=== PATIENT | female | born 1940 | race Caucasian/White ===

== ENCOUNTER 2021-04-26 13:31 | Observation (INO) ==
[2021-04-26 15:00] LABS: Basophils % 0.7 %; Eosinophils # 0.1 K/mcL (0.0-0.6); Eosinophils % 2.6 %; Hematocrit 41.8 % (35.3-44.9); Hemoglobin 13.3 g/dL (11.5-15.4); Immature Granulocytes % 0.2 % (0-4); Lymphocytes # 1.2 K/mcL (0.6-4.6); Lymphocytes % 21.4 %; Mean Corpuscular HGB Conc 31.8 g/dL (31.6-35.5); Mean Corpuscular Volume 91.3 fL (83.0-100.0); Monocytes # 0.5 K/mcL (0.0-1.3); Monocytes % 9.1 %; Neutrophils # 3.6 K/mcL (1.6-8.9); Platelet Count 267 K/mcL (140-400); Red Blood Count 4.58 M/mcL (3.82-4.97); Red Cell Distribution Width 12.8 % (11.5-14.5); White Blood Count 5.4 K/mcL (4.3-11.1)
[2021-04-26 15:21] LABS: Alanine Aminotransferase 10 Units/L (7-52); Albumin/Globulin Ratio 1.4 (1.1-2.2); Alkaline Phosphatase 60 Units/L (34-104); Aspartate Amino Transferase 14 Units/L (13-39); BUN/Creatinine Ratio 20 (6-26); Bilirubin,Total 0.3 mg/dL (0.3-1.0); Blood Urea Nitrogen 18 mg/dL (8-23); Calcium 9.1 mg/dL (8.6-10.3); Carbon Dioxide 28 mEq/L (23-29); Chloride 99 mEq/L (98-107); Globulin 2.9 g/dL (2.4-3.5); Glucose 101 mg/dL (70-105); Osmolality,Calculated 280 (280-300); Potassium 4.1 mEq/L (3.5-5.1); Sodium 134 mEq/L (136-145); Total Protein 6.9 g/dL (6.4-8.9); eGFR For African Americans > 60 (> 60); eGFR For Non-African Americans > 60 (> 60)
[2021-04-26] MEDS ORDERED: Naloxone 0.4 MG/ML INJ IVP PRN (15:46)
[2021-04-26] MEDS: *HR* Heparin 5,000 UNIT/ML VIAL SQ SCH (17:46)
[2021-04-26] MEDS: clonazePAM 0.5 MG TABLET PO SCH (21:18)
[2021-04-27] MEDS: *HR* Heparin 5,000 UNIT/ML VIAL SQ SCH (05:47)
[2021-04-27 07:27] LABS: Basophils % 0.8 %; Eosinophils # 0.2 K/mcL (0.0-0.6); Eosinophils % 3.6 %; Hematocrit 40.1 % (35.3-44.9); Hemoglobin 12.6 g/dL (11.5-15.4); Immature Granulocytes % 0.2 % (0-4); Lymphocytes # 1.3 K/mcL (0.6-4.6); Lymphocytes % 27.4 %; Mean Corpuscular HGB Conc 31.4 g/dL (31.6-35.5); Mean Corpuscular Hemoglobin 28.9 pg (28.0-33.3); Mean Platelet Volume 9.2 fL (9.4-12.4); Monocytes # 0.5 K/mcL (0.0-1.3); Monocytes % 9.8 %; Neutrophils # 2.8 K/mcL (1.6-8.9); Platelet Count 273 K/mcL (140-400); Red Blood Count 4.36 M/mcL (3.82-4.97); Red Cell Distribution Width 12.9 % (11.5-14.5); Segmented Neutrophils % 58.2 %; White Blood Count 4.8 K/mcL (4.3-11.1)
[2021-04-27 07:45] LABS: BUN/Creatinine Ratio 21 (6-26); Blood Urea Nitrogen 19 mg/dL (8-23); Calcium 9.2 mg/dL (8.6-10.3); Carbon Dioxide 30 mEq/L (23-29); Chloride 101 mEq/L (98-107); Glucose 89 mg/dL (70-105); Osmolality,Calculated 286 (280-300); Potassium 4.2 mEq/L (3.5-5.1); Sodium 137 mEq/L (136-145); eGFR For African Americans > 60 (> 60); eGFR For Non-African Americans 60 (> 60)
[2021-04-27] MEDS: Multivit/Ca/Min/Fe/FA 1 TAB TABLET PO SCH (10:17)
[2021-04-27] MEDS: Aspirin Enteric Coated 81 MG Tablet PO SCH (10:17)
[2021-04-27] MEDS: lisinopriL 20 MG TABLET PO SCH (10:17)
[2021-04-27] MEDS: amLODIPine 5 MG TABLET PO SCH (10:18)
[2021-04-27] MEDS: clonazePAM 0.5 MG TABLET PO SCH ×2 (10:18→20:01)
[2021-04-27] MEDS: Sennosides/Docusate Sodium TABLET PO SCH (20:01)
[2021-04-27] MEDS ORDERED: *HR* Labetalol 20 MG/4 ML SYRINGE IVP ONE (21:46)
[2021-04-27] MEDS ORDERED: hydrALAZINE 25 MG TABLET PO ONE ×2 (21:54→22:45)
[2021-04-28] MEDS: *HR* Enoxaparin 40 MG/0.4 ML SYRINGE SQ SCH (06:02)
[2021-04-28] MEDS: Multivit/Ca/Min/Fe/FA 1 TAB TABLET PO SCH (07:46)
[2021-04-28] MEDS: lisinopriL 20 MG TABLET PO SCH (07:46)
[2021-04-28] MEDS: Aspirin Enteric Coated 81 MG Tablet PO SCH (07:46)
[2021-04-28] MEDS: amLODIPine 5 MG TABLET PO SCH (07:47)
[2021-04-28] MEDS: Sennosides/Docusate Sodium TABLET PO SCH ×2 (07:47→19:54)
[2021-04-28] MEDS: clonazePAM 0.5 MG TABLET PO SCH ×2 (07:47→19:54)
[2021-04-28] MEDS ORDERED: hydrALAZINE 25 MG TABLET PO PRN (19:29)
[2021-04-28] MEDS ORDERED: amLODIPine 5 MG TABLET PO ONE (19:45)
[2021-04-29] MEDS: *HR* Enoxaparin 40 MG/0.4 ML SYRINGE SQ SCH (05:36)
[2021-04-29] MEDS: Aspirin Enteric Coated 81 MG Tablet PO SCH (09:09)
[2021-04-29] MEDS: Multivit/Ca/Min/Fe/FA 1 TAB TABLET PO SCH (09:09)
[2021-04-29] MEDS: Sennosides/Docusate Sodium TABLET PO SCH ×2 (09:10→19:32)
[2021-04-29] MEDS: clonazePAM 0.5 MG TABLET PO SCH ×2 (09:10→19:32)
[2021-04-29] MEDS: amLODIPine 5 MG TABLET PO SCH (09:10)
[2021-04-29] MEDS: lisinopriL 20 MG TABLET PO SCH (09:10)
[2021-04-29] MEDS ORDERED: Acetaminophen 325 MG TABLET PO PRN (23:50)
[2021-04-30] MEDS: *HR* Enoxaparin 40 MG/0.4 ML SYRINGE SQ SCH (05:39)
[2021-04-30 07:17] LABS: Basophils # 0.1 K/mcL (0.0-0.2); Basophils % 1.2 %; Eosinophils # 0.2 K/mcL (0.0-0.6); Eosinophils % 3.3 %; Hematocrit 40.3 % (35.3-44.9); Hemoglobin 12.9 g/dL (11.5-15.4); Immature Granulocytes % 0.4 % (0-4); Lymphocytes # 1.2 K/mcL (0.6-4.6); Lymphocytes % 24.7 %; Mean Corpuscular Hemoglobin 28.9 pg (28.0-33.3); Mean Corpuscular Volume 90.4 fL (83.0-100.0); Monocytes # 0.6 K/mcL (0.0-1.3); Monocytes % 11.2 %; Neutrophils # 2.9 K/mcL (1.6-8.9); Platelet Count 293 K/mcL (140-400); Red Blood Count 4.46 M/mcL (3.82-4.97); Red Cell Distribution Width 12.9 % (11.5-14.5); Segmented Neutrophils % 59.2 %; White Blood Count 4.9 K/mcL (4.3-11.1)
[2021-04-30 07:22] LABS: BUN/Creatinine Ratio 20 (6-26); Blood Urea Nitrogen 17 mg/dL (8-23); Calcium 9.3 mg/dL (8.6-10.3); Carbon Dioxide 31 mEq/L (23-29); Chloride 100 mEq/L (98-107); Glucose 99 mg/dL (70-105); Osmolality,Calculated 282 (280-300); Potassium 4.1 mEq/L (3.5-5.1); Sodium 135 mEq/L (136-145); eGFR For African Americans > 60 (> 60); eGFR For Non-African Americans > 60 (> 60)
[2021-04-30] MEDS: amLODIPine 5 MG TABLET PO SCH (07:54)
[2021-04-30] MEDS: Aspirin Enteric Coated 81 MG Tablet PO SCH (07:54)
[2021-04-30] MEDS: lisinopriL 20 MG TABLET PO SCH (07:55)
[2021-04-30] MEDS: clonazePAM 0.5 MG TABLET PO SCH (07:55)
[2021-04-30] MEDS: Sennosides/Docusate Sodium TABLET PO SCH (07:55)
[2021-04-30] MEDS: Multivit/Ca/Min/Fe/FA 1 TAB TABLET PO SCH (07:55)
[2021-04-30 19:26] VITALS: BP 144/86; PULSE 68; RESP 12; TEMP 98.1; O2SAT 93
== END 2021-04-30 16:04 ==
LOC: EMEROOPIK 13:31 → INPPIK 13:31
PROVIDERS: ADMIT Internal Medicine; ATTEND Internal Medicine

== ENCOUNTER 2021-04-30 15:10 | Inpatient (IN) ==
[2021-04-30] MEDS ORDERED: hydrALAZINE 25 MG TABLET PO PRN (16:08)
[2021-04-30] MEDS: clonazePAM 0.5 MG TABLET PO SCH (20:47)
[2021-04-30] MEDS: Sennosides/Docusate Sodium TABLET PO SCH ×2 (20:47→20:48)
[2021-04-30] MEDS: Acetaminophen 325 MG TABLET PO PRN (21:02)
[2021-05-01 06:18] LABS: Basophils # 0.1 K/mcL (0.0-0.2); Eosinophils # 0.2 K/mcL (0.0-0.6); Eosinophils % 3.5 %; Hematocrit 39.3 % (35.3-44.9); Hemoglobin 12.6 g/dL (11.5-15.4); Immature Granulocytes % 0.4 % (0-4); Lymphocytes # 1.7 K/mcL (0.6-4.6); Lymphocytes % 32.2 %; Mean Corpuscular HGB Conc 32.1 g/dL (31.6-35.5); Mean Corpuscular Hemoglobin 29.2 pg (28.0-33.3); Mean Corpuscular Volume 91.2 fL (83.0-100.0); Mean Platelet Volume 8.9 fL (9.4-12.4); Monocytes # 0.6 K/mcL (0.0-1.3); Monocytes % 12.2 %; Neutrophils # 2.6 K/mcL (1.6-8.9); Platelet Count 285 K/mcL (140-400); Red Blood Count 4.31 M/mcL (3.82-4.97); Red Cell Distribution Width 12.8 % (11.5-14.5); Segmented Neutrophils % 50.7 %; White Blood Count 5.2 K/mcL (4.3-11.1)
[2021-05-01] MEDS: Sennosides/Docusate Sodium TABLET PO SCH ×2 (08:42→19:46)
[2021-05-01] MEDS: lisinopriL 20 MG TABLET PO SCH (08:42)
[2021-05-01] MEDS: Aspirin Enteric Coated 81 MG Tablet PO SCH (08:42)
[2021-05-01] MEDS: clonazePAM 0.5 MG TABLET PO SCH ×2 (08:42→19:41)
[2021-05-01] MEDS: Multivit/Ca/Min/Fe/FA 1 TAB TABLET PO SCH (08:43)
[2021-05-01] MEDS ORDERED: amLODIPine 5 MG TABLET PO SCH (09:00)
[2021-05-02] MEDS: Sennosides/Docusate Sodium TABLET PO SCH ×2 (08:42→19:43)
[2021-05-02] MEDS: Aspirin Enteric Coated 81 MG Tablet PO SCH (08:42)
[2021-05-02] MEDS: lisinopriL 20 MG TABLET PO SCH (08:42)
[2021-05-02] MEDS: Multivit/Ca/Min/Fe/FA 1 TAB TABLET PO SCH (08:42)
[2021-05-02] MEDS: clonazePAM 0.5 MG TABLET PO SCH ×2 (08:43→19:44)
[2021-05-02] MEDS: amLODIPine 5 MG TABLET PO SCH (18:46)
[2021-05-03] MEDS: lisinopriL 20 MG TABLET PO SCH (08:48)
[2021-05-03] MEDS: Sennosides/Docusate Sodium TABLET PO SCH ×2 (08:50→21:00)
[2021-05-03] MEDS: Aspirin Enteric Coated 81 MG Tablet PO SCH (08:51)
[2021-05-03] MEDS: Multivit/Ca/Min/Fe/FA 1 TAB TABLET PO SCH (08:51)
[2021-05-03] MEDS: clonazePAM 0.5 MG TABLET PO SCH ×2 (08:51→21:00)
[2021-05-03] MEDS: amLODIPine 5 MG TABLET PO SCH (17:51)
[2021-05-04] MEDS: Aspirin Enteric Coated 81 MG Tablet PO SCH (09:57)
[2021-05-04] MEDS: Sennosides/Docusate Sodium TABLET PO SCH ×2 (09:58→21:00)
[2021-05-04] MEDS: lisinopriL 20 MG TABLET PO SCH (09:58)
[2021-05-04] MEDS: Multivit/Ca/Min/Fe/FA 1 TAB TABLET PO SCH (09:58)
[2021-05-04] MEDS: clonazePAM 0.5 MG TABLET PO SCH ×2 (09:58→21:00)
[2021-05-04] MEDS: amLODIPine 5 MG TABLET PO SCH (17:23)
[2021-05-05] MEDS: Aspirin Enteric Coated 81 MG Tablet PO SCH (08:06)
[2021-05-05] MEDS: lisinopriL 20 MG TABLET PO SCH (08:06)
[2021-05-05] MEDS: clonazePAM 0.5 MG TABLET PO SCH ×2 (08:06→19:42)
[2021-05-05] MEDS: Sennosides/Docusate Sodium TABLET PO SCH ×2 (08:06→19:41)
[2021-05-05] MEDS: Multivit/Ca/Min/Fe/FA 1 TAB TABLET PO SCH (08:06)
[2021-05-05] MEDS: amLODIPine 5 MG TABLET PO SCH (17:29)
[2021-05-05] MEDS: Acetaminophen 325 MG TABLET PO PRN (19:48)
[2021-05-06] MEDS: Aspirin Enteric Coated 81 MG Tablet PO SCH (08:51)
[2021-05-06] MEDS: clonazePAM 0.5 MG TABLET PO SCH ×2 (08:52→19:18)
[2021-05-06] MEDS: Sennosides/Docusate Sodium TABLET PO SCH ×2 (08:52→19:18)
[2021-05-06] MEDS: lisinopriL 20 MG TABLET PO SCH (08:52)
[2021-05-06] MEDS: Multivit/Ca/Min/Fe/FA 1 TAB TABLET PO SCH (08:52)
[2021-05-06] MEDS: amLODIPine 5 MG TABLET PO SCH (18:02)
[2021-05-06] MEDS: Acetaminophen 325 MG TABLET PO PRN (22:10)
[2021-05-07] MEDS: Aspirin Enteric Coated 81 MG Tablet PO SCH (08:55)
[2021-05-07] MEDS: Multivit/Ca/Min/Fe/FA 1 TAB TABLET PO SCH (08:56)
[2021-05-07] MEDS: clonazePAM 0.5 MG TABLET PO SCH ×2 (08:56→21:00)
[2021-05-07] MEDS: Sennosides/Docusate Sodium TABLET PO SCH ×2 (08:56→21:00)
[2021-05-07] MEDS: lisinopriL 20 MG TABLET PO SCH (08:56)
[2021-05-07] MEDS: amLODIPine 5 MG TABLET PO SCH (18:39)
[2021-05-07] MEDS: Acetaminophen 325 MG TABLET PO PRN (21:05)
[2021-05-08] MEDS: Multivit/Ca/Min/Fe/FA 1 TAB TABLET PO SCH (08:52)
[2021-05-08] MEDS: Sennosides/Docusate Sodium TABLET PO SCH ×2 (08:52→19:55)
[2021-05-08] MEDS: Aspirin Enteric Coated 81 MG Tablet PO SCH (08:52)
[2021-05-08] MEDS: clonazePAM 0.5 MG TABLET PO SCH ×2 (08:52→19:55)
[2021-05-08] MEDS: lisinopriL 20 MG TABLET PO SCH (08:52)
[2021-05-08] MEDS: amLODIPine 5 MG TABLET PO SCH (16:52)
[2021-05-08] MEDS: Acetaminophen 325 MG TABLET PO PRN (19:55)
[2021-05-09] MEDS: Sennosides/Docusate Sodium TABLET PO SCH ×2 (08:02→20:48)
[2021-05-09] MEDS: clonazePAM 0.5 MG TABLET PO SCH ×2 (08:02→20:48)
[2021-05-09] MEDS: Aspirin Enteric Coated 81 MG Tablet PO SCH (08:02)
[2021-05-09] MEDS: lisinopriL 20 MG TABLET PO SCH (08:02)
[2021-05-09] MEDS: Multivit/Ca/Min/Fe/FA 1 TAB TABLET PO SCH (08:02)
[2021-05-09] MEDS: amLODIPine 5 MG TABLET PO SCH (17:29)
[2021-05-09] MEDS: Acetaminophen 325 MG TABLET PO PRN (20:47)
[2021-05-10] MEDS: Sennosides/Docusate Sodium TABLET PO SCH ×2 (09:27→19:58)
[2021-05-10] MEDS: lisinopriL 20 MG TABLET PO SCH (09:28)
[2021-05-10] MEDS: clonazePAM 0.5 MG TABLET PO SCH ×2 (09:28→19:59)
[2021-05-10] MEDS: Aspirin Enteric Coated 81 MG Tablet PO SCH (09:28)
[2021-05-10] MEDS: Multivit/Ca/Min/Fe/FA 1 TAB TABLET PO SCH (09:28)
[2021-05-10] MEDS: amLODIPine 5 MG TABLET PO SCH (17:03)
[2021-05-10] MEDS: Acetaminophen 325 MG TABLET PO PRN (20:05)
[2021-05-11] MEDS: Aspirin Enteric Coated 81 MG Tablet PO SCH (09:45)
[2021-05-11] MEDS: Sennosides/Docusate Sodium TABLET PO SCH ×2 (09:45→20:44)
[2021-05-11] MEDS: lisinopriL 20 MG TABLET PO SCH (09:45)
[2021-05-11] MEDS: Multivit/Ca/Min/Fe/FA 1 TAB TABLET PO SCH (09:45)
[2021-05-11] MEDS: clonazePAM 0.5 MG TABLET PO SCH ×2 (09:46→20:45)
[2021-05-11] MEDS: amLODIPine 5 MG TABLET PO SCH (18:00)
[2021-05-11] MEDS: Acetaminophen 325 MG TABLET PO PRN (20:44)
[2021-05-12] MEDS: lisinopriL 20 MG TABLET PO SCH (09:12)
[2021-05-12] MEDS: Multivit/Ca/Min/Fe/FA 1 TAB TABLET PO SCH (09:12)
[2021-05-12] MEDS: clonazePAM 0.5 MG TABLET PO SCH ×2 (09:12→19:38)
[2021-05-12] MEDS: Aspirin Enteric Coated 81 MG Tablet PO SCH (09:12)
[2021-05-12] MEDS: Sennosides/Docusate Sodium TABLET PO SCH ×2 (09:12→19:38)
[2021-05-12] MEDS: amLODIPine 5 MG TABLET PO SCH (17:12)
[2021-05-12] MEDS: Acetaminophen 325 MG TABLET PO PRN (19:39)
[2021-05-13] MEDS: Sennosides/Docusate Sodium TABLET PO SCH ×2 (09:43→20:42)
[2021-05-13] MEDS: lisinopriL 20 MG TABLET PO SCH (09:43)
[2021-05-13] MEDS: Multivit/Ca/Min/Fe/FA 1 TAB TABLET PO SCH (09:43)
[2021-05-13] MEDS: clonazePAM 0.5 MG TABLET PO SCH ×2 (09:43→20:42)
[2021-05-13] MEDS: Aspirin Enteric Coated 81 MG Tablet PO SCH (09:44)
[2021-05-13] MEDS: amLODIPine 5 MG TABLET PO SCH (17:04)
[2021-05-13] MEDS: Acetaminophen 325 MG TABLET PO PRN (20:45)
[2021-05-14 08:57] LABS: Hematocrit 40.5 % (35.3-44.9); Hemoglobin 12.7 g/dL (11.5-15.4); Mean Corpuscular HGB Conc 31.4 g/dL (31.6-35.5); Mean Corpuscular Hemoglobin 28.7 pg (28.0-33.3); Mean Corpuscular Volume 91.6 fL (83.0-100.0); Mean Platelet Volume 8.5 fL (9.4-12.4); Platelet Count 230 K/mcL (140-400); Red Blood Count 4.42 M/mcL (3.82-4.97); Red Cell Distribution Width 12.7 % (11.5-14.5); White Blood Count 4.2 K/mcL (4.3-11.1)
[2021-05-14 09:42] LABS: BUN/Creatinine Ratio 19 (6-26); Blood Urea Nitrogen 15 mg/dL (8-23); Calcium 9.3 mg/dL (8.6-10.3); Carbon Dioxide 32 mEq/L (23-29); Chloride 99 mEq/L (98-107); Glucose 92 mg/dL (70-105); Osmolality,Calculated 280 (280-300); Potassium 3.7 mEq/L (3.5-5.1); Sodium 135 mEq/L (136-145); eGFR For African Americans > 60 (> 60); eGFR For Non-African Americans > 60 (> 60)
[2021-05-14] MEDS: lisinopriL 20 MG TABLET PO SCH (10:52)
[2021-05-14] MEDS: Sennosides/Docusate Sodium TABLET PO SCH ×2 (10:52→20:33)
[2021-05-14] MEDS: Aspirin Enteric Coated 81 MG Tablet PO SCH (10:52)
[2021-05-14] MEDS: clonazePAM 0.5 MG TABLET PO SCH ×2 (10:52→20:33)
[2021-05-14] MEDS: Multivit/Ca/Min/Fe/FA 1 TAB TABLET PO SCH (10:52)
[2021-05-14] MEDS: amLODIPine 5 MG TABLET PO SCH (18:54)
[2021-05-14] MEDS: Acetaminophen 325 MG TABLET PO PRN (20:32)
[2021-05-15] MEDS: Sennosides/Docusate Sodium TABLET PO SCH ×2 (08:55→21:02)
[2021-05-15] MEDS: clonazePAM 0.5 MG TABLET PO SCH ×3 (08:56→21:02)
[2021-05-15] MEDS: lisinopriL 20 MG TABLET PO SCH (08:56)
[2021-05-15] MEDS: [UNRECOGNIZED DRUG - OTHER] PO SCH (08:56)
[2021-05-15] MEDS: Aspirin Enteric Coated 81 MG Tablet PO SCH (08:56)
[2021-05-15] MEDS: MULTIVITAMIN PO SCH (08:56)
[2021-05-15] MEDS: amLODIPine 5 MG TABLET PO SCH (17:12)
[2021-05-15] MEDS: *HR* Heparin 5,000 UNIT/ML VIAL SQ SCH (17:15)
[2021-05-15] MEDS: Acetaminophen 325 MG TABLET PO PRN (21:10)
[2021-05-16] MEDS: *HR* Heparin 5,000 UNIT/ML VIAL SQ SCH (05:56)
[2021-05-16] MEDS: Aspirin Enteric Coated 81 MG Tablet PO SCH (10:31)
[2021-05-16] MEDS: Sennosides/Docusate Sodium TABLET PO SCH ×2 (10:32→21:12)
[2021-05-16] MEDS: clonazePAM 0.5 MG TABLET PO SCH ×3 (10:32→21:12)
[2021-05-16] MEDS: lisinopriL 20 MG TABLET PO SCH (10:33)
[2021-05-16] MEDS: MULTIVITAMIN PO SCH (10:33)
[2021-05-16] MEDS: [UNRECOGNIZED DRUG - OTHER] PO SCH (10:33)
[2021-05-16] MEDS: amLODIPine 5 MG TABLET PO SCH (16:53)
[2021-05-16] MEDS: Acetaminophen 325 MG TABLET PO PRN (21:16)
[2021-05-17] MEDS ORDERED: *HR* Enoxaparin 40 MG/0.4 ML SYRINGE SQ SCH (06:00)
[2021-05-17] MEDS: lisinopriL 20 MG TABLET PO SCH (10:12)
[2021-05-17] MEDS: Aspirin Enteric Coated 81 MG Tablet PO SCH (10:12)
[2021-05-17] MEDS: clonazePAM 0.5 MG TABLET PO SCH ×3 (10:12→20:48)
[2021-05-17] MEDS: [UNRECOGNIZED DRUG - OTHER] PO SCH (10:13)
[2021-05-17] MEDS: MULTIVITAMIN PO SCH (10:13)
[2021-05-17] MEDS: Sennosides/Docusate Sodium TABLET PO SCH ×2 (10:13→20:48)
[2021-05-17] MEDS: *HR* Enoxaparin 40 MG/0.4 ML SYRINGE SQ SCH (10:13)
[2021-05-17] MEDS: amLODIPine 5 MG TABLET PO SCH (16:29)
[2021-05-17] MEDS: Acetaminophen 325 MG TABLET PO PRN (20:48)
[2021-05-18] MEDS: *HR* Enoxaparin 40 MG/0.4 ML SYRINGE SQ SCH (05:46)
[2021-05-18] MEDS: Aspirin Enteric Coated 81 MG Tablet PO SCH (11:06)
[2021-05-18] MEDS: Multivit/Ca/Min/Fe/FA 1 TAB TABLET PO SCH (11:06)
[2021-05-18] MEDS: clonazePAM 0.5 MG TABLET PO SCH ×3 (11:07→20:49)
[2021-05-18] MEDS: lisinopriL 20 MG TABLET PO SCH (11:07)
[2021-05-18] MEDS: [UNRECOGNIZED DRUG - OTHER] PO SCH (11:08)
[2021-05-18] MEDS: Sennosides/Docusate Sodium TABLET PO SCH ×2 (11:08→20:51)
[2021-05-18] MEDS: MULTIVITAMIN PO SCH (11:08)
[2021-05-18] MEDS: amLODIPine 5 MG TABLET PO SCH (16:18)
[2021-05-18] MEDS: Acetaminophen 325 MG TABLET PO PRN (20:49)
[2021-05-19] MEDS: *HR* Enoxaparin 40 MG/0.4 ML SYRINGE SQ SCH (06:05)
[2021-05-19] MEDS: Multivit/Ca/Min/Fe/FA 1 TAB TABLET PO SCH (11:08)
[2021-05-19] MEDS: [UNRECOGNIZED DRUG - OTHER] PO SCH (11:09)
[2021-05-19] MEDS: lisinopriL 20 MG TABLET PO SCH (11:09)
[2021-05-19] MEDS: Aspirin Enteric Coated 81 MG Tablet PO SCH (11:09)
[2021-05-19] MEDS: clonazePAM 0.5 MG TABLET PO SCH ×3 (11:09→20:19)
[2021-05-19] MEDS: Sennosides/Docusate Sodium TABLET PO SCH ×2 (11:09→20:19)
[2021-05-19] MEDS: MULTIVITAMIN PO SCH (11:09)
[2021-05-19] MEDS: amLODIPine 5 MG TABLET PO SCH (18:42)
[2021-05-19] MEDS: Acetaminophen 325 MG TABLET PO PRN (20:19)
[2021-05-20] MEDS: *HR* Enoxaparin 40 MG/0.4 ML SYRINGE SQ SCH (06:08)
[2021-05-20] MEDS: lisinopriL 20 MG TABLET PO SCH (08:28)
[2021-05-20] MEDS: Aspirin Enteric Coated 81 MG Tablet PO SCH (08:28)
[2021-05-20] MEDS: clonazePAM 0.5 MG TABLET PO SCH ×3 (08:28→21:09)
[2021-05-20] MEDS: Sennosides/Docusate Sodium TABLET PO SCH ×2 (08:28→21:09)
[2021-05-20] MEDS: Multivit/Ca/Min/Fe/FA 1 TAB TABLET PO SCH (08:28)
[2021-05-20] MEDS: [UNRECOGNIZED DRUG - OTHER] PO SCH (08:30)
[2021-05-20] MEDS: MULTIVITAMIN PO SCH (08:30)
[2021-05-20] MEDS: amLODIPine 5 MG TABLET PO SCH (18:09)
[2021-05-20] MEDS: Acetaminophen 325 MG TABLET PO PRN (21:12)
[2021-05-21] MEDS: *HR* Enoxaparin 40 MG/0.4 ML SYRINGE SQ SCH (05:42)
[2021-05-21] MEDS: Sennosides/Docusate Sodium TABLET PO SCH ×2 (08:26→20:30)
[2021-05-21] MEDS: Aspirin Enteric Coated 81 MG Tablet PO SCH (08:26)
[2021-05-21] MEDS: [UNRECOGNIZED DRUG - OTHER] PO SCH ×2 (08:27→08:35)
[2021-05-21] MEDS: MULTIVITAMIN PO SCH ×2 (08:27→08:35)
[2021-05-21] MEDS: clonazePAM 0.5 MG TABLET PO SCH ×2 (08:27→20:30)
[2021-05-21] MEDS: lisinopriL 20 MG TABLET PO SCH (08:27)
[2021-05-21] MEDS: Multivit/Ca/Min/Fe/FA 1 TAB TABLET PO SCH (08:27)
[2021-05-21] MEDS: amLODIPine 5 MG TABLET PO SCH (17:28)
[2021-05-21] MEDS: Acetaminophen 325 MG TABLET PO PRN (21:35)
[2021-05-22] MEDS: *HR* Enoxaparin 40 MG/0.4 ML SYRINGE SQ SCH (05:23)
[2021-05-22] MEDS: lisinopriL 20 MG TABLET PO SCH (08:11)
[2021-05-22] MEDS: Multivit/Ca/Min/Fe/FA 1 TAB TABLET PO SCH (08:11)
[2021-05-22] MEDS: Sennosides/Docusate Sodium TABLET PO SCH ×2 (08:11→19:49)
[2021-05-22] MEDS: clonazePAM 0.5 MG TABLET PO SCH ×2 (08:11→19:49)
[2021-05-22] MEDS: modafiniL 100 MG TABLET PO SCH (08:11)
[2021-05-22] MEDS: Aspirin Enteric Coated 81 MG Tablet PO SCH (08:11)
[2021-05-22] MEDS: MULTIVITAMIN PO SCH (08:13)
[2021-05-22] MEDS: [UNRECOGNIZED DRUG - OTHER] PO SCH (08:13)
[2021-05-22] MEDS: Acetaminophen 325 MG TABLET PO PRN ×2 (14:36→22:12)
[2021-05-22] MEDS: amLODIPine 5 MG TABLET PO SCH (16:57)
[2021-05-23] MEDS: *HR* Enoxaparin 40 MG/0.4 ML SYRINGE SQ SCH (05:21)
[2021-05-23] MEDS: modafiniL 100 MG TABLET PO SCH (08:44)
[2021-05-23] MEDS: MULTIVITAMIN PO SCH (08:44)
[2021-05-23] MEDS: [UNRECOGNIZED DRUG - OTHER] PO SCH (08:44)
[2021-05-23] MEDS: Sennosides/Docusate Sodium TABLET PO SCH ×2 (08:44→20:02)
[2021-05-23] MEDS: lisinopriL 20 MG TABLET PO SCH (08:44)
[2021-05-23] MEDS: Aspirin Enteric Coated 81 MG Tablet PO SCH (08:44)
[2021-05-23] MEDS: Multivit/Ca/Min/Fe/FA 1 TAB TABLET PO SCH (08:45)
[2021-05-23] MEDS: clonazePAM 0.5 MG TABLET PO SCH ×2 (08:45→20:03)
[2021-05-23] MEDS: amLODIPine 5 MG TABLET PO SCH (17:05)
[2021-05-23] MEDS: Acetaminophen 325 MG TABLET PO PRN (20:03)
[2021-05-24] MEDS: *HR* Enoxaparin 40 MG/0.4 ML SYRINGE SQ SCH (06:16)
[2021-05-24] MEDS: [UNRECOGNIZED DRUG - OTHER] PO SCH (08:30)
[2021-05-24] MEDS: MULTIVITAMIN PO SCH (08:30)
[2021-05-24] MEDS: lisinopriL 20 MG TABLET PO SCH (08:31)
[2021-05-24] MEDS: Sennosides/Docusate Sodium TABLET PO SCH ×2 (08:32→21:07)
[2021-05-24] MEDS: modafiniL 100 MG TABLET PO SCH (08:33)
[2021-05-24] MEDS: Aspirin Enteric Coated 81 MG Tablet PO SCH (08:33)
[2021-05-24] MEDS: Multivit/Ca/Min/Fe/FA 1 TAB TABLET PO SCH (08:34)
[2021-05-24] MEDS: clonazePAM 0.5 MG TABLET PO SCH ×2 (08:34→21:08)
[2021-05-24] MEDS: amLODIPine 5 MG TABLET PO SCH (17:22)
[2021-05-24] MEDS: Acetaminophen 325 MG TABLET PO PRN (21:07)
[2021-05-25] MEDS: *HR* Enoxaparin 40 MG/0.4 ML SYRINGE SQ SCH (05:03)
[2021-05-25] MEDS: lisinopriL 20 MG TABLET PO SCH (10:29)
[2021-05-25] MEDS: Sennosides/Docusate Sodium TABLET PO SCH ×2 (10:29→20:58)
[2021-05-25] MEDS: MULTIVITAMIN PO SCH (10:29)
[2021-05-25] MEDS: Multivit/Ca/Min/Fe/FA 1 TAB TABLET PO SCH (10:29)
[2021-05-25] MEDS: clonazePAM 0.5 MG TABLET PO SCH ×2 (10:29→20:58)
[2021-05-25] MEDS: Aspirin Enteric Coated 81 MG Tablet PO SCH (10:29)
[2021-05-25] MEDS: modafiniL 100 MG TABLET PO SCH (10:29)
[2021-05-25] MEDS: [UNRECOGNIZED DRUG - OTHER] PO SCH (10:29)
[2021-05-25] MEDS: amLODIPine 5 MG TABLET PO SCH (17:21)
[2021-05-25] MEDS: Acetaminophen 325 MG TABLET PO PRN (21:00)
[2021-05-26] MEDS: *HR* Enoxaparin 40 MG/0.4 ML SYRINGE SQ SCH (05:23)
[2021-05-26] MEDS: Multivit/Ca/Min/Fe/FA 1 TAB TABLET PO SCH (09:01)
[2021-05-26] MEDS: lisinopriL 20 MG TABLET PO SCH (09:01)
[2021-05-26] MEDS: Aspirin Enteric Coated 81 MG Tablet PO SCH (09:01)
[2021-05-26] MEDS: clonazePAM 0.5 MG TABLET PO SCH ×2 (09:02→21:01)
[2021-05-26] MEDS: MULTIVITAMIN PO SCH ×2 (09:02→10:08)
[2021-05-26] MEDS: [UNRECOGNIZED DRUG - OTHER] PO SCH ×2 (09:02→10:08)
[2021-05-26] MEDS: Sennosides/Docusate Sodium TABLET PO SCH ×2 (09:02→21:00)
[2021-05-26] MEDS: modafiniL 100 MG TABLET PO SCH (10:31)
[2021-05-26] MEDS: amLODIPine 5 MG TABLET PO SCH (17:53)
[2021-05-26] MEDS: Acetaminophen 325 MG TABLET PO PRN (21:01)
[2021-05-27] MEDS: *HR* Enoxaparin 40 MG/0.4 ML SYRINGE SQ SCH (05:51)
[2021-05-27] MEDS: modafiniL 100 MG TABLET PO SCH (07:56)
[2021-05-27] MEDS: Multivit/Ca/Min/Fe/FA 1 TAB TABLET PO SCH (07:56)
[2021-05-27] MEDS: lisinopriL 20 MG TABLET PO SCH (07:57)
[2021-05-27] MEDS: clonazePAM 0.5 MG TABLET PO SCH ×2 (07:57→19:55)
[2021-05-27] MEDS: Sennosides/Docusate Sodium TABLET PO SCH ×2 (07:57→19:55)
[2021-05-27] MEDS: Aspirin Enteric Coated 81 MG Tablet PO SCH (07:57)
[2021-05-27] MEDS: MULTIVITAMIN PO SCH (07:57)
[2021-05-27] MEDS: [UNRECOGNIZED DRUG - OTHER] PO SCH (07:57)
[2021-05-27] MEDS: amLODIPine 5 MG TABLET PO SCH (17:21)
[2021-05-27] MEDS: Acetaminophen 325 MG TABLET PO PRN (19:55)
[2021-05-28] MEDS: *HR* Enoxaparin 40 MG/0.4 ML SYRINGE SQ SCH (05:47)
[2021-05-28] MEDS: modafiniL 100 MG TABLET PO SCH (10:02)
[2021-05-28] MEDS: Aspirin Enteric Coated 81 MG Tablet PO SCH (10:02)
[2021-05-28] MEDS: lisinopriL 20 MG TABLET PO SCH (10:03)
[2021-05-28] MEDS: Multivit/Ca/Min/Fe/FA 1 TAB TABLET PO SCH (10:03)
[2021-05-28] MEDS: Sennosides/Docusate Sodium TABLET PO SCH ×2 (10:04→19:45)
[2021-05-28] MEDS: clonazePAM 0.5 MG TABLET PO SCH ×2 (10:04→19:45)
[2021-05-28] MEDS: [UNRECOGNIZED DRUG - OTHER] PO SCH ×2 (10:05→10:09)
[2021-05-28] MEDS: MULTIVITAMIN PO SCH ×2 (10:05→10:09)
[2021-05-28] MEDS: amLODIPine 5 MG TABLET PO SCH (18:17)
[2021-05-28] MEDS: Acetaminophen 325 MG TABLET PO PRN (19:48)
[2021-05-29] MEDS: *HR* Enoxaparin 40 MG/0.4 ML SYRINGE SQ SCH (06:05)
[2021-05-29] MEDS: clonazePAM 0.5 MG TABLET PO SCH ×2 (08:42→21:13)
[2021-05-29] MEDS: Aspirin Enteric Coated 81 MG Tablet PO SCH (08:42)
[2021-05-29] MEDS: Multivit/Ca/Min/Fe/FA 1 TAB TABLET PO SCH (08:43)
[2021-05-29] MEDS: lisinopriL 20 MG TABLET PO SCH (08:43)
[2021-05-29] MEDS: Sennosides/Docusate Sodium TABLET PO SCH ×2 (08:43→21:13)
[2021-05-29] MEDS: MULTIVITAMIN PO SCH (08:44)
[2021-05-29] MEDS: [UNRECOGNIZED DRUG - OTHER] PO SCH (08:44)
[2021-05-29] MEDS: modafiniL 100 MG TABLET PO SCH (08:44)
[2021-05-29] MEDS: amLODIPine 5 MG TABLET PO SCH (17:46)
[2021-05-29 19:30] VITALS: PULSE 56
[2021-05-29] MEDS: Acetaminophen 325 MG TABLET PO PRN (21:13)
[2021-05-30] MEDS: *HR* Enoxaparin 40 MG/0.4 ML SYRINGE SQ SCH (06:07)
[2021-05-30 07:11] VITALS: BP 137/68; RESP 16; TEMP 98.3; O2SAT 94
[2021-05-30] MEDS: Multivit/Ca/Min/Fe/FA 1 TAB TABLET PO SCH (08:07)
[2021-05-30] MEDS: lisinopriL 20 MG TABLET PO SCH (08:08)
[2021-05-30] MEDS: Aspirin Enteric Coated 81 MG Tablet PO SCH (08:08)
[2021-05-30] MEDS: clonazePAM 0.5 MG TABLET PO SCH (08:08)
[2021-05-30] MEDS: Sennosides/Docusate Sodium TABLET PO SCH (08:08)
[2021-05-30] MEDS: modafiniL 100 MG TABLET PO SCH (08:12)
[2021-05-30] MEDS: [UNRECOGNIZED DRUG - OTHER] PO SCH (08:13)
[2021-05-30] MEDS: MULTIVITAMIN PO SCH (08:13)
== END 2021-05-30 10:03 | disposition home or self-care (01) | DRG 57 ==
LOC: INPPIK 16:25
PROVIDERS: ADMIT Internal Medicine; ATTEND Internal Medicine